=== PATIENT | female | born 1980 | race Caucasian/White ===

== ENCOUNTER 2016-08-23 10:22 | Emergency (ER) | payer SELFPAY ==
--- NOTE | 2016-08-23 10:46 | UC ---
Abdominal Pain Female HPI - HPI Summary HPI Summary: has been using prescription opiates for back pain for years--past 3 moths has been smoking heroin, unsure/unwilling/unable? to state how much she uses daily. states she has been using for 3 months with ultram---now hasnot used for 24 hours legs are restless, nauseated/vomiting - History of Current Complaint Stated Complaint: WITHDRAWALS Time Seen by Provider: 08/23/16 10:33 Hx Obtained From: Patient Hx Last Menstrual Period: 05/28/15 ?: No Onset/Duration: Sudden Onset, Lasting Hours, Still Present Timing: Constant Severity Initially: Moderate Severity Currently: Moderate Pain Intensity: 8 Pain Scale Used: 0-10 Numeric Location: Diffuse Radiates: No Character: Aching, Cramping Aggravating Factor(s): Nothing Alleviating Factor(s): Nothing Associated Signs and Symptoms: Positive: Decreased Appetite, Nausea, Vomiting Allergies/Adverse Reactions: Allergies Allergy/AdvReac Type Severity Reaction Status Date / Time No Known Allergies Allergy Verified 08/23/16 12:12 PMH/Surg Hx/FS Hx/Imm Hx Previously Healthy: No - chronic back pain - Surgical History Surgical History: None - Family History Known Family History: Positive: None Family History: no reported cardiovascular issues in family lineage - Social History Occupation: Unemployed Lives: With Family Alcohol Use: None Substance Use Type: None Smoking Status (MU): Never Smoked Tobacco Review of Systems Constitutional: Chills Skin: Negative Eyes: Negative ENT: Negative Respiratory: Negative Cardiovascular: Negative Gastrointestinal: Vomiting Genitourinary: Negative Motor: Negative Neurovascular: Negative Musculoskeletal: Arthralgia, Myalgia Neurological: Negative Psychological: Negative All Other Systems Reviewed And Are Negative: Yes Physical Exam Triage Information Reviewed: Yes Completion Of Physical Exam Limited Due To: Altered Mental Status Appearance: Ill-Appearing - mnild-appears older than stated age, Pain Distress - pacing, emesis, Thin Vital Signs: Initial Vital Signs Temp 99.1 F 08/23/16 10:29 Pulse 106 08/23/16 10:29 Resp 18 08/23/16 10:29 BP 127/77 08/23/16 10:29 Vital Signs Reviewed: Yes Eye Exam: Normal Eyes: Positive: Conjunctiva Clear ENT Exam: Normal ENT: Positive: Normal ENT inspection, Hearing grossly normal, Pharynx normal, TMs normal. Negative: Nasal congestion, Nasal drainage, Tonsillar swelling, Tonsillar exudate, Muffled/hoarse voice, Other: Dental: Positive: Gross Decay/Caries @ Neck exam: Normal Neck: Positive: Supple, Nontender Respiratory Exam: Normal Respiratory: Positive: Chest non-tender, Lungs clear, Normal breath sounds, No respiratory distress, No accessory muscle use Cardiovascular Exam: Normal Cardiovascular: Positive: RRR, No Murmur, Pulses Normal, Brisk Capillary Refill Abdominal Exam: Normal Abdomen Description: Positive: Nontender, No Organomegaly, Soft Bowel Sounds: Positive: Present Musculoskeletal Exam: Normal Musculoskeletal: Positive: Strength Intact, ROM Intact, No Edema Neurological Exam: Normal Neurological: Positive: Alert, Muscle Tone Normal Psychological Exam: Normal Skin Exam: Normal Re-Evaluation - Re-Evaluation First Eval Change: Improved - States she is not getting any relief from zofran and toradal however patient is pacing less and is tolerating po fluids---reports feeling very anzious and has taken out her IV herself---po vistaril givem Abd Pain Female Course/Dx - Course Course Of Treatment: Encourage sobriety, vistaril and zofran given for home use , information about [facility], harm reduction lev[facility] and [facility] program given - Differential Dx/Diagnosis Differential Diagnosis: Appendicitis, Hepatitis, Irritable Bowel Syndrome, Pancreatitis, Urinary Tract Infection, Other - opiate with drawl Provider Diagnoses: Opiate addiction, opiate withdrawl Discharge - Discharge Plan Condition: Stable Disposition: HOME Prescriptions: Ondansetron [Zofran Odt] 4 mg PO QID #10 tab hydrOXYzine PAMOATE CAP* [Vistaril CAP*] 25 - 50 mg PO Q6H PRN #30 cap PRN Reason: Agitation/Anxiety/Insomnia Patient Education Materials: Narcotic Abuse (ED) Referrals: [facility] [place] [facility] [Outside] - 2 Days (2) No Primary Care Phys,NOPCP [Primary Care Provider] -
[2016-08-23] MEDS ORDERED: Ketorolac INJ* 30 MG/ML 1 ML VIAL IV PUSH ONE (10:47)
[2016-08-23] MEDS ORDERED: Ondansetron INJ* 2 MG/ML VIAL IV ONE (10:47)
[2016-08-23] MEDS ORDERED: NS 0.9% 1000 ML* 1,000 ML IV ONE (10:48)
[2016-08-23 12:10] VITALS: BP 137/48
[2016-08-23] MEDS ORDERED: hydrOXYzine HCL TAB* 25 MG PO ONE ×2 (12:40→12:55)
[2016-08-23] MEDS ORDERED: Ondansetron ODT TAB* 4 MG PO ONE (12:56)
== END 2016-08-23 13:15 | disposition home or self-care (01) ==
LOC: UCCORT 10:22
DX: F11.23 Opioid dependence with withdrawal (principal)
CPT/HCPCS: 81025; 96361; 96374; 96375; 99213; A9270-GY; G0463; J1885; J2405